=== PATIENT | male | born 1950 | race Caucasian/White ===

== ENCOUNTER 2018-01-13 07:55 | Inpatient (IN) | payer OTHER ==
[~2018-01-13] VITALS: Ht 185.4 cm; Wt 87.0 kg
[~2018-01-13 07:55] MED LIST: ATEN-60 PO; IBUP800T24 PO; PREG75CA PO; RANI300C7 PO; TRIA75TA55 PO
[2018-01-13] MEDS ORDERED: VANCOMYCIN HCL 1000 MG VL ONE (10:27)
[2018-01-13] MEDS ORDERED: ceFAZolin 1GM 2 GM in D5W 5% 100 ML IV ONE (10:30)
[2018-01-13] MEDS ORDERED: CELECOXIB 100 MG CAP PO ONE (10:30)
[2018-01-13] MEDS ORDERED: PREGABALIN CAPSULE 75 MG CAP PO ONE (10:30)
[2018-01-13] MEDS ORDERED: ACETAMINOPHEN IV 1000 MG/100ML (10MG/ML) IV ONE (10:30)
[2018-01-13] MEDS ORDERED: TRANEXAMIC ACID 20 ML ONE (10:31)
[2018-01-13] MEDS ORDERED: BUPIVACAINE W/ EPINEPH 0.25% INJ 50ML MDV ONE (10:31)
[2018-01-13] MEDS ORDERED: KETOROLAC TROMETH 30 MG/ML 1ML VIAL ONE (10:33)
[2018-01-13] MEDS ORDERED: ceFAZolin 1GM/50ML 50 ML IV ONE (10:33)
[2018-01-13] MEDS ORDERED: MORPHINE SULF(PF) 0.5MG/ML 10ML VIAL ONE ×2 (10:33→10:51)
[2018-01-13] MEDS ORDERED: TETRACAINE 1% INJ 2 ML VIAL IJ ONE (10:48)
[2018-01-13] MEDS ORDERED: fentaNYL CITRATE 100 MCG/2 ML VL ONE (10:51)
[2018-01-13] MEDS ORDERED: MIDAZOLAM HCL 1MG/1ML-2 ML VIAL ONE ×2 (10:51→11:48)
[2018-01-13] MEDS ORDERED: PHENYLEPHRINE HCL 10 MG/ML VL IV ONE (11:06)
[2018-01-13] MEDS ORDERED: PROPOFOL 10 MG/ML 20 ML IV ONE (11:40)
[2018-01-13] MEDS ORDERED: ePHEDrine SULFATE 50 MG/ML AMP IV PRN (12:00)
[2018-01-13] MEDS ORDERED: KETOROLAC TROMETH 30 MG/ML 1ML VIAL IV PRN ×2 (12:00→14:15)
[2018-01-13] MEDS ORDERED: DEXAMETHASONE SOD PHOS 10MG/1ML VIAL INJ IV PRN (12:00)
[2018-01-13] MEDS ORDERED: diphenhdrAMINE HCL 50 MG/1 ML VL IV PRN (12:00)
[2018-01-13] MEDS ORDERED: NALBUPHINE HCL 10 MG/1ml INJECTION SUBCUT ONE (12:00)
[2018-01-13] MEDS ORDERED: LABETALOL HCL 5 MG/ML 4ML SYRINGE IV PRN (12:00)
[2018-01-13] MEDS ORDERED: HYDROmorphone HCL 2 MG/ML VL IV PRN ×2 (12:00)
[2018-01-13] MEDS ORDERED: MORPHINE SULF INJ 2 MG/ML SYRINGE 1ML IV ONE (12:00)
[2018-01-13] MEDS ORDERED: ONDANSETRON HCL 4 MG/2 ML VIAL IV PRN (12:00)
[2018-01-13] MEDS ORDERED: MIDAZOLAM HCL 1MG/1ML-2 ML VIAL IV PRN (12:00)
[2018-01-13] MEDS ORDERED: NALOXONE HCL 0.4 MG/ML VIAL IV PRN (12:00)
[2018-01-13] MEDS ORDERED: MORPHINE SULF(PF) 0.5MG/ML 10ML VIAL IV PRN (14:15)
[2018-01-13] MEDS ORDERED: NITROGLYCERIN 0.4 MG SL TAB SL PRN (14:15)
[2018-01-13] MEDS ORDERED: MORPHINE SULFATE 4 MG/ML SYR/VIAL IV PRN (14:15)
[2018-01-13] MEDS ORDERED: BISACODYL 5 MG EC TAB PO PRN (14:15)
[2018-01-13] MEDS ORDERED: ACETAMINOPHEN 325 MG TAB PO PRN (14:15)
[2018-01-13] MEDS ORDERED: traMADol HCL 50 MG TAB PO PRN (14:15)
[2018-01-13 18:00] VITALS: BP 124/98
[2018-01-13] MEDS: ONDANSETRON HCL 4 MG/2 ML VIAL IV PRN (18:34)
[2018-01-13] MEDS: ceFAZolin 1GM/50ML 50 ML IV SCH ×2 (18:34→22:05)
[2018-01-13] MEDS: LACTATED RINGER'S 1,000 ML IV SCH (18:35)
[2018-01-13] MEDS: DOCUSATE SOD 100 MG CAP PO SCH (22:05)
[2018-01-13] MEDS: PREGABALIN 25 MG CAP PO SCH (22:05)
[2018-01-13 22:55] VITALS: BP 119/94
[2018-01-14] MEDS: ceFAZolin 1GM/50ML 50 ML IV SCH (04:09)
[2018-01-14 05:25] VITALS: BP 128/81
[2018-01-14] MEDS: oxyCODONE ER 10 MG TAB PO SCH ×3 (06:00→23:31)
[2018-01-14] MEDS: LACTATED RINGER'S 1,000 ML IV SCH ×3 (07:00→10:00)
[2018-01-14 07:17] LABS: BUN/Creatinine Ratio 12.6; Bilirubin, Total 0.9 mg/dL (0.2-1.0); Calcium 7.8 mg/dL (8.5-10.1); Potassium 3.3 mmol/L (3.5-5.1); Total Protein 6.1 g/dL (6.4-8.2)
[2018-01-14 08:00] VITALS: BP 101/70
[2018-01-14] MEDS: Ensure Enlive Strawberry 8oz Bottle PO SCH ×3 (08:00→17:49)
[2018-01-14 08:22] LABS: Hematocrit 39.5 % (41.0-53.0); Hemoglobin 13.1 g/dL (13.5-17.5)
[2018-01-14] MEDS ORDERED: MORPHINE SULFATE 4 MG/ML SYR/VIAL IV PRN (09:30)
[2018-01-14] MEDS: POTASSIUM CHL 20 Meq TABLET PO SCH (10:00)
[2018-01-14] MEDS: DOCUSATE SOD 100 MG CAP PO SCH ×2 (10:00→23:28)
[2018-01-14] MEDS ORDERED: PATIENTS OWN MEDICATION (Ranitidine Hcl 1 CAP) PO SCH (10:00)
[2018-01-14] MEDS: TRIAMTERENE/HCTZ 75/50MG TABLET PO SCH (10:00)
[2018-01-14] MEDS: ENOXAPARIN SOD 40 MG/0.4 ML SYRINGE SC SCH (10:00)
[2018-01-14] MEDS ORDERED: ATENOLOL PO SCH (10:00)
[2018-01-14] MEDS: ATENOLOL 25 MG TAB PO SCH (10:00)
[2018-01-14] MEDS: FAMOTIDINE 20 MG TAB PO SCH (10:43)
[2018-01-14 12:13] VITALS: BP 90/65
[2018-01-14 17:00] VITALS: BP 111/71
[2018-01-14 22:00] VITALS: BP 95/67
[2018-01-14] MEDS: PREGABALIN 25 MG CAP PO SCH (23:29)
[2018-01-15 05:23] VITALS: BP 113/72
[2018-01-15] MEDS: LACTATED RINGER'S 1,000 ML IV SCH ×2 (07:00→16:10)
[2018-01-15] MEDS: Ensure Enlive Strawberry 8oz Bottle PO SCH ×3 (07:37→17:50)
[2018-01-15 08:44] LABS: Hematocrit 33.8 % (41.0-53.0); Hemoglobin 11.7 g/dL (13.5-17.5)
[2018-01-15 09:00] VITALS: BP 110/70
[2018-01-15] MEDS: FAMOTIDINE 20 MG TAB PO SCH (09:40)
[2018-01-15] MEDS: POTASSIUM CHL 20 Meq TABLET PO SCH (09:41)
[2018-01-15] MEDS: oxyCODONE ER 10 MG TAB PO SCH ×2 (09:43→10:00)
[2018-01-15] MEDS: ATENOLOL 25 MG TAB PO SCH (09:44)
[2018-01-15] MEDS: ENOXAPARIN SOD 40 MG/0.4 ML SYRINGE SC SCH (09:44)
[2018-01-15] MEDS: DOCUSATE SOD 100 MG CAP PO SCH (10:00)
[2018-01-15] MEDS: TRIAMTERENE/HCTZ 75/50MG TABLET PO SCH (10:00)
[2018-01-15] MEDS: ONDANSETRON HCL 4 MG/2 ML VIAL IV PRN (11:08)
[2018-01-15 13:00] VITALS: BP 114/72
[2018-01-15 17:00] VITALS: BP 114/80
== END 2018-01-15 19:00 | DRG 470 ==
LOC: SUR 07:55 → CENTRAL 07:56
PROVIDERS: ADMIT Orthopaedic Surgery Adult Reconstructive Orthopaedic Surgery; ATTEND Orthopaedic Surgery Adult Reconstructive Orthopaedic Surgery
PROC: 0SRD0J9 Replacement of Left Knee Joint with Synthetic Substitute, Cemented, Open Approach (ICD-10-PCS; principal; 2018-01-13 11:06)
DX: M17.12 Unilateral primary osteoarthritis, left knee (principal); M21.262 Flexion deformity, left knee; M21.00 Valgus deformity, not elsewhere classified, unspecified site; Z82.49 Family history of ischemic heart disease and other diseases of the circulatory system; S83.005A Unspecified dislocation of left patella, initial encounter; X58.XXXA Exposure to other specified factors, initial encounter; Y93.89 Activity, other specified; Y92.89 Other specified places as the place of occurrence of the external cause; E87.6 Hypokalemia; Z98.49 Cataract extraction status, unspecified eye; Z85.47 Personal history of malignant neoplasm of testis; I13.10 Hypertensive heart and chronic kidney disease without heart failure, with stage 1 through stage 4 chronic kidney disease, or unspecified chronic kidney disease; N18.2 Chronic kidney disease, stage 2 (mild); G89.29 Other chronic pain; F17.200 Nicotine dependence, unspecified, uncomplicated
CPT/HCPCS: 36415; 73562; 80053; 85014; 85018; 97116; 97163; C1713; J0131; J0690; J1885; J2250; J2405; J2704; J7060

== ENCOUNTER 2025-03-30 17:11 | Inpatient (IN) | payer OTHER ==
[~2025-03-30] VITALS: Ht 175.3 cm; Wt 68.2 kg
[~2025-03-30 17:11] MED LIST changes: +CYCL-839 PO; +DOCU-265 PO; +ENO40SY SC; +IBUP-1456 PO; -IBUP800T24 PO; -TRIA75TA55 PO
[2025-03-30] MEDS ORDERED: AMIODARONE 360mg/200mL PREMIX 200 ML IV SCH (18:18)
[2025-03-30 18:29] VITALS: PULSE 137; RESP 20; O2SAT 95
--- NOTE | 2025-03-30 18:34 | ED.PDOC ---
History of Present Illness HPI Comments Kartik Melchor is a 75-year-old male, with past medical history of HTN, suprapubic catheter. The patient came to the ED brought by EMS team. The patient reports he was at physical therapy early today, when he started feeling dyspneic and with generalized weakness. His heart rate was found to be elevated and he was sent to [facility] urgent care, where his EKG showed SVT with a heart rate of >143bpm. He was started on adenosine 6mg, then adenosine 12mg with improvement on heart rate and conversion to sinus rhythm. Upon arrival to the ED, his BP was 121/78 HR: 143bpm with EKG showing sinus tachycardia. The patient denies lightheadedness, chest pain, palpitation, abdominal pain, fever, chills or other symptoms. The patient will be admitted for rate control and further assessment. Chief Complaint: General Weakness Time Seen by MD: 18:03 Reviewed Notes: Nurses Notes, Marble Machine Tender Notes, Medications, Allergies (Narcotics) Allergies: Coded Allergies: Hydrocodone (Verified Allergy, Unknown, 07/31/18) Propoxyphene (Verified Allergy, Unknown, 07/31/18) Home Meds Active Scripts Enoxaparin Sodium (Lovenox) 40 Mg/0.4 Ml Ij, 40 MG SC DAILY for 11 Days Prov:SHIV BOWERS MD 08/06/18 Docusate Sodium (Docusate Sodium) 100 Mg Cap, 100 MG PO Q12HR for 30 Days, CAP Prov:SHIV BOWERS MD 08/06/18 Cyclobenzaprine Hcl (Cyclobenzaprine Hcl) 10 Mg Tab, 5 MG PO TID for 14 Days, #21 TAB Prov:SHIV BOWERS MD 08/06/18 Reported Medications Ibuprofen (Ibuprofen) 800 Mg Tab, 800 MG PO TIDPRN PRN for MODERATE PAIN, MG 07/31/18 Pregabalin (Lyrica) 75 Mg Cap, 1 CAP PO HS, #60 CAP 1 Refill 01/10/18 Ranitidine Hcl (Ranitidine Hcl) 300 Mg Cap, 1 CAP PO DAILY, #30 CAP 3 Refills 01/10/18 Atenolol (Atenolol) 25 Mg Tab, 1 TAB PO DAILY, #30 TAB 5 Refills 01/10/18 Information Source: Patient Mode of Arrival: EMS Severity: Moderate Timing: Hours Duration: Since onset Prehospital treatment: 12 Lead EKG, Other (Adenosine 6mg and 12mg ) Past Medical History PAST MEDICAL HISTORY: HTN Surgical History (Other): Suprapubic catheter. Bilateral knee replacement. Family History Family History: Reviewed,noncontributory to illness Social History Smoker: Non-Smoker Alcohol: Denies ETOH Use Drugs: Denies Drug Use Lives In: Home Constitutional: reports: weakness (Generalized weakness); denies: chills, diaphoresis, fatigue, fever, malaise, sweats, others EENTM: denies: blurred vision, double vision, ear bleeding, ear discharge, ear drainage, ear pain, ear ringing, eye pain, eye redness, hearing loss, mouth pain, mouth swelling, nasal discharge, nose bleeding, nose congestion, nose pain, photophobia, tearing, throat pain, throat swelling, voice changes, others Respiratory: denies: cough, hemoptysis, orthopnea, SOB at rest, shortness of breath, SOB with excertion, stridor, wheezing, others Cardiovascular: denies: chest pain, dizzy spells, diaphoresis, Dyspnea on exertion, edema, irregular heart beat, left arm pain, lightheadedness, palpitations, PND, syncope, others Gastrointestinal: denies: abdomen distended, abdominal pain, blood streaked bowels, constipated, diarrhea, dysphagia, difficulty swallowing, hematemesis, melena, nausea, poor appetite, poor fluid intake, rectal bleeding, rectal pain, vomiting, others Genitourinary: denies: burning, dysuria, flank pain, frequency, hematuria, incontinence, penile discharge, penile sore, pain, testicle pain, testicle swelling, urgency, others Neurological: denies: dizziness, fainting, headache, left sided numbness, left sided weakness, numbness, paresthesia, pre-existing deficit, right sided numbness, right sided weakness, seizure, speech problems, tingling, tremors, weakness, others Musculoskeletal: denies: back pain, gout, joint pain, joint swelling, muscle pain, muscle stiffness, neck pain, others Integumetry: denies: bruises, change in color, change in hair/nails, dryness, laceration, lesions, lumps, rash, wounds, others Allergic/Immunocompromised: denies: Difficulty Healing, Frequent Infections, Hives, Itching, others Hematologic/Lymphatic: denies: anemia, blood clots, easy bleeding, easy bruising, swollen glands, others Endocrine: denies: excessive hunger, excessive sweating, excessive thirst, excessive urination, flushing, intolerance to cold, intolerance to heat, unexplained weight gain, unexplained weight loss, others Psychiatric: denies: anxiety, bipolar disorder, depression, hopeless, panic disorder, schizophrenia, sleepless, suicidal, others Physical Exam Exam Comments Alert, oriented x3. General Appearance: Mild Distress HEENT: Normal ENT Inspection, Pharynx Normal, TMs Normal Neck: Full Range of Motion, Non-Tender, Normal, Normal Inspection Respiratory: Chest Non-Tender, Lungs Clear, No Accessory Muscle Use, No Respiratory Distress, Normal Breath Sounds Cardiovascular: No JVD, No Murmur, No Gallop, Normal Peripheral Pulses (143bpm), Tachycardia Breast Exam: Deferred Gastrointestinal: No Organomegaly, Non Tender, No Pulsatile Mass, Normal Bowel Sounds, Soft Genitalia: Deferred Pelvic: Deferred Rectal: Deferred Extremities: No pedal edema, Other (The patient has a left orthopedic boot. unable to explore gait at this time. ) Musculoskeletal : Apperance: Normal Neurologic: Alert, roofer vinyl coating II-XII nml as Tested, No Motor Deficits, Normal Affect, Normal Mood, No Sensory Deficits Cerebellar Function: Normal Reflexes: Normal Skin: Dry, Normal Color, Warm Lymphatic: No Adenopathy Was a procedure done? Was a procedure done?: No EKG EKG : Pulse Rate (adult): 140 [place]: Normal Cardiac Rhythm: NSR Block: RBBB Hypertrophy: None ST: New, Infarct Differential Dx Considerations may include: #SVT #Tachycardia. X-Ray, Labs, Meds, VS Vital Signs Date Time Temp Pulse Resp B/P (MAP) Pulse Ox O2 Delivery O2 Flow Rate FiO2 03/30/25 18:29 137 20 95 Room Air* 0 21 03/30/25 18:07 134 03/30/25 17:39 98.4 139 20 101/72 (82) 98.4 03/30/25 17:36 140 03/30/25 17:20 98.3 150 16 121/78 97 98.3 Lab Test 03/30/25 18:20 03/30/25 18:18 Range/Units Urine Color Yellow Yellow Urine Clarity Turbid H Clear Urine pH 7.5 5.0-9.0 Urine Specific Simpson 1.023 1.001-1.035 Urine Protein Trace H Negative Urine Ketones Trace Negative Urine Blood Negative Negative /uL Urine Nitrite Negative Negative Urine Bilirubin Negative Negative Urine Urobilinogen Normal Negative mg/dL Urine Leukocyte Esterase 3+ Negative /uL Urine RBC <1 0 - 3 /hpf Urine WBC Clumps Present None Seen /hpf Urine Microscopic WBC 55 H 0-3 /HPF Urine Squamous Epithelial Cells Few <5 /hpf Urine Triple Phosphate Crystals Mod None Seen /hpf Urine Amorphous Crystals Few None Seen /hpf Urine Bacteria Few H None Seen /hpf Urine Hyaline Casts Few 0 - 2 /lpf Urine Mucus Few None Seen Urine Glucose Normal Normal mg/dL Urine Opiates Screen Pending Urine Fentanyl Screen Pending Urine Barbiturates Screen Pending Urine Phencyclidine Screen Pending Urine Amphetamines Screen Pending Urine Benzodiazepines Screen Pending Urine Cocaine Screen Pending Urine Cannabinoids Screen Pending White Blood Count 9.6 4.4-10.8 10^3/uL Red Blood Count 4.90 4.5-5.90 10^6/uL Hemoglobin 15.0 13.5-17.5 g/dL Hematocrit 43.3 41.0-53.0 % Mean Corpuscular Volume 88.5 80.0-100.0 fL Mean Corpuscular Hemoglobin 30.6 28.0-32.0 pg Mean Corpuscular Hemoglobin Concent 34.6 32.0-36.0 g/dL Red Cell Distribution Width 13.6 11.8-14.3 % Platelet Count 246 140-450 10^3/uL Mean Platelet Volume 7.7 6.9-10.8 fL Neutrophils (%) (Auto) 79.8 37.0-80.0 % Lymphocytes (%) (Auto) 11.4 10.0-50.0 % Monocytes (%) (Auto) 6.7 0.0-12.0 % Eosinophils (%) (Auto) 1.5 0.0-7.0 % Basophils (%) (Auto) 0.6 0.0-2.0 % Neutrophils # (Auto) 7.6 1.6-8.6 10 ^3/uL Lymphocytes # (Auto) 1.1 0.4-5.4 10 ^3/uL Monocytes # (Auto) 0.6 0-1.3 10 ^3/uL Eosinophils # (Auto) 0.1 0-0.8 10 ^3/uL Basophils # (Auto) 0.1 0-0.2 10 ^3/uL Nucleated Red Blood Cells 0.1 % D-Dimer, Quantitative 1.12 H 0.0-0.49 mg/L FEU Sodium Level Pending Potassium Level Pending Chloride Level Pending Carbon Dioxide Level Pending Anion Gap Pending Blood Urea Nitrogen Pending Creatinine Pending Glomerular Filtration Rate Calc Pending BUN/Creatinine Ratio Pending Serum Glucose Pending Calcium Level Pending Magnesium Level Pending Total Bilirubin Pending Aspartate Amino Transferase (AST) Pending Alanine Aminotransferase (ALT) Pending Alkaline Phosphatase Pending Troponin I High Sensitivity Pending B-Type Natriuretic Peptide Pending Total Protein Pending Albumin Pending X-Ray, Labs, Meds, VS Comment 18:45 The patient was re-evaluated HR: 133bpm 92/75mmHg CBC: WBC: 9.6x10e3/uL Hb: 15.0mg/dl CMP pending at this time. The patient will be admitted for further assessment and management. Time of 1ST Reevaluation: 18:44 Reevaluation 1ST: Improved Patient Education/Counseling: Diagnosis, Treatment, Prognosis, Need For Follow Up Family Education/Counseling: No Family Present SEPSIS Sepsis Screen Date sepsis recognized/suspect: Mar 30, 2025 Time Sepsis recognized/suspect: 1713 Recent Procedure: No On Antibiotic Therapy: No Respiratory Rate >20: No Heart Rate >90: Yes Temp<36 C (96.8 F) or >38.3 C: No SBP <90 or MAP <65 mmHG: No New Acute Mental Status Change: No Is the patient on CPAP, BIPAP,: No Physician Orders Troponin-I Hs (03/30/25 18:03) Comprehensive Metabolic Panel (03/30/25 18:03) B-Type Natriuretic Peptide (03/30/25 18:03) Chest Portable (03/30/25 18:03) Magnesium (03/30/25 18:03) Troponin-I Hs (03/30/25 19:03) Troponin-I Hs (03/30/25 21:03) Electrocardigram (03/30/25 18:03) Electrocardigram (03/30/25 19:03) Amiodarone 360mg/200ml Premix (Nexterone (03/30/25 18:45) Urinalysis (03/30/25 18:37) Drug Screen (03/30/25 18:46) Bilat Lower Dvt (03/30/25 18:53) Vital Signs Date Time Temp Pulse Resp B/P (MAP) Pulse Ox O2 Delivery O2 Flow Rate FiO2 03/30/25 18:29 137 20 95 Room Air* 0 21 03/30/25 18:07 134 03/30/25 17:39 98.4 139 20 101/72 (82) 98.4 03/30/25 17:36 140 03/30/25 17:20 98.3 150 16 121/78 97 98.3 Laboratory Tests Test 03/30/25 18:18 White Blood Count 9.6 10^3/uL (4.4-10.8) Departure 1 Departure Time of Disposition: 18:56 Impression: Primary Impression: SVT (supraventricular tachycardia) Additional Impression: HTN (hypertension) Disposition: ADMITTED INPATIENT Admit to: Tele Condition: Fair Comments Goals of care discussed with the patient > 35 min. Discussed plan of care with Dr. Torres Code status: Full code PCP: Regi/ TOMMIE Baez Plan discussed with: Patient, the patient agrees with the admission plan. Critical Care Note Critical Care Time?: Yes (35 min-critical care time only) Stability Stability form required: No Heart Score Heart Score: Heart Score Response (Comments) Value History Moderate Suspicious 1 EKG Normal 0 Age >65 2 Risk Factors 1 or 2 risk factors 1 Troponin Normal limit 0 Total 4 MURALI MILLER RESIDENT Mar 30, 2025 18:34
[2025-03-30 18:36] LABS: Hematocrit 43.3 % (41.0-53.0); Hemoglobin 15.0 g/dL (13.5-17.5); Mean Corpuscular Hemoglobin 30.6 pg (28.0-32.0); Mean Corpuscular Volume 88.5 fL (80.0-100.0); Nucleated Red Blood Cells % 0.1 %
--- NOTE | 2025-03-30 18:42 | DVH ---
CHEST RADIOGRAPH Indication: Tachycardia Technique: Single frontal view of the chest was obtained Comparison: None FINDINGS: Lines and Tubes: None Lungs: No focal consolidation. Hyperinflation of the lungs with mild interstitial prominence. 0.8 cm nodule within the right mid to lower lung zone. Pleura: No effusion. No pneumothorax. Cardiomediastinal contours: Unremarkable Bones: No acute osseous abnormality. IMPRESSION: Hyperinflation of the lungs are Mild interstitial prominence which may be from Emphysematous changes. 8 mm nodular density of the right mid to lower lung zone. CT should be considered for further evaluat ion.
[2025-03-30 18:46] LABS: Urine Amorphous Crystal FEW /hpf (None Seen); Urine Protein, UAD TRACE (Negative); Urine WBC Clumps PRESENT /hpf (None Seen)
[2025-03-30 18:53] LABS: Alanine Aminotransferase 13 U/L (7-40); Albumin 4.4 g/dL (3.2-4.8); Alkaline Phosphatase 73 U/L (46-116); Anion Gap 14 (5-15); BUN/Creatinine Ratio 15.7 (10.0-20.0); Bilirubin, Total 0.9 mg/dL (0.2-1.0); Blood Urea Nitrogen 14 mg/dL (9-23); Calcium 9.4 mg/dL (8.7-10.4); Carbon Dioxide 21 mmol/L (20-31); Chloride 102 mmol/L (98-107); Magnesium 1.8 mg/dL (1.6-2.6); Potassium 3.8 mmol/L (3.5-5.1); Sodium 137 mmol/L (136-145); Total Protein 7.1 g/dL (5.7-8.2)
[2025-03-30 18:55] LABS: Glucose 118 mg/dL (74-106)
[2025-03-30] MEDS: AMIODARONE BOLUS KIT 100 ML IV ONE (18:55)
--- NOTE | 2025-03-30 19:05 | ECG ---
[facility] Test Date: 2025-03-30 Test Time: 18:07:54 Pat Name: DEANNA HALL Department: [facility] ED Room: [address] [place] [address] Gender: M Communications Project Lead: ben : 1950 Requested By: MURALI MILLER Order Number: [id number] Reading MD: Yuniel Adams Measurements Intervals [place] Rate: 134 P: 0 [place]: 84 QRS: 75 QRSD: 137 T: 31 QT: 353 QTc: 527 Interpretive Statements Sinus tachycardia Right bundle branch block Electronically Signed On 03-31-2025 9:06:18 PDT by Yuniel Adams Please click the below link to view image of tracing.
[2025-03-30] MEDS: AMIODARONE 360mg/200mL PREMIX 200 ML IV ONE (19:25)
[2025-03-30 19:30] LABS: Benzodiazephine Screen, Urine Neg (NEGATIVE)
[2025-03-30 19:33] LABS: Amphetamine Screen, Urine Neg (NEGATIVE); Barbiturate Scree,Urine Neg (NEGATIVE); Cannabinoid Screen, Urine Pos (NEGATIVE); Cocaine Screen, Urine Neg (NEGATIVE); Opiate Scree,Urine Neg (NEGATIVE); Phencyclidine Screen, Urine Neg (NEGATIVE)
[2025-03-30] MEDS ORDERED: NITROGLYCERIN 0.4 MG SL TAB SL PRN (20:00)
[2025-03-30] MEDS ORDERED: ONDANSETRON HCL 4 MG/2 ML VIAL IV PRN (20:00)
[2025-03-30] MEDS ORDERED: MORPHINE SULFATE 4 MG/ML SYR/VIAL IV PRN (20:15)
--- NOTE | 2025-03-30 20:20 | DVH ---
Procedure: US BiLat Lower DVT Study Date and Requested Time: 03/30/2025 07:47 PM History: R/O DVT Comparison: None Technique: Multiple high resolution crenshaw-scale images with and without compression obtained of the bi lateral lower extremity veins, including the common femoral vein, deep femoral vein, proximal mid and distal superficial femoral vein, and popliteal vein. Additional limited images of the greater saphen ous vein also obtained. Augmentation performed as indicated. Color and spectral doppler flow images o btained as indicated. Findings: Incompressibility of bilateral common femoral veins. Otherwise, no deep vein thrombosis of the remain rasheed of the bilateral lower extremity veins. Impression: There appears to be bilateral common femoral vein deep vein thrombosis. Learning And Development Officer documented notification of resident [place] at 8:10 p.m. On 03/30/2025
[2025-03-30] MEDS: IOHEXOL 350 MG/ML 100ML IJ ONE (21:00)
[2025-03-30] MEDS: FAMOTIDINE 20 MG TAB PO SCH (22:00)
--- NOTE | 2025-03-30 22:25 | DVH ---
CTA Chest with intravenous contrast INDICATION: r/o pe , sob, elevated d dimer COMPARISON: None TECHNIQUE: Multidetector spiral CTA of the chest was performed of the chest with intravenous contrast . PULMONARY ANGIOGRAPHY PROTOCOL was utilized using a bolus-tracking technique centered on the main p ulmonary artery. Axial, coronal and sagittal multiplanar and MIP reformats were performed. Radiation Dose : 1. Chest: CTDI volume is 20.72 mGy. Dose-length product is 715.35 mGy*cm Contrast: 100 cc Omnipaque 350. The dose indicators for CT are the volume Computed Tomography (CT) Dose Index (CTDIvol) and the Dose Length Product (DLP), and are measured in units of mGy and mGy-cm, respectively. These indicators are not patient dose, but values generated from the CT scanner acquisition factors. The report includes radiation exposure data for exposures received during this examination. Findings: Pulmonary artery: No pulmonary embolism Lower neck: Normal thyroid. Lungs: Linear bands of scarring at both lung apices. No dense focal airspace disease. Heart/Vascular Structures: Normal heart size. No pericardial effusion. Coronary calcifications. Ascen ding thoracic aorta is borderline dilated measuring 4.1 cm. Lymph Nodes: No adenopathy Pleura: No pleural effusion or significant pneumothorax. Musculoskeletal: No acute osseous abnormality. Soft tissues: Normal. Upper abdomen: Limited portions of the upper abdomen are unremarkable. IMPRESSION: No pulmonary embolism or other acute abnormality.
[2025-03-30] MEDS: ENOXAPARIN SOD 100 MG/1 ML SYRINGE SC SCH (23:12)
[2025-03-31] VITALS (7 sets, daily range): BP systolic 99–131; BP diastolic 71–98; PULSE 60–73; RESP 18–20; TEMP 97.8–97.9; O2SAT 90–98
--- NOTE | 2025-03-31 02:39 | DVHHP2 ---
Admitting Diagnosis: SVT, UTI History of Present Illness History Source: Patient Exam Limitations: No limitations HPI Kartik Melchor is a 75-year-old male, with a past medical history of HTN, suprapubic catheter, testicular cancer, who presents with a chief complaint of Palpitations. The patient reports he was at physical therapy yesterday, when he started feeling dyspneic and with generalized weakness. His heart rate was found to be elevated and he was sent to [facility] urgent care, where his EKG showed SVT with a heart rate of >143bpm. He was started on adenosine 6mg, then adenosine 12mg with improvement on heart rate and conversion to sinus rhythm. Patient denies lightheadedness, chest pain, palpitation, dyspnea, headaches, nausea, vomiting, abdominal pain, fever, chills, or other symptoms. Patient was started on Amiodarone drip in the ED. Patient admitted for further evaluation and treatment. Home Meds Active Scripts Enoxaparin Sodium (Lovenox) 40 Mg/0.4 Ml Ij, 40 MG SC DAILY for 11 Days Prov:SHIV BOWERS MD 08/06/18 Docusate Sodium (Docusate Sodium) 100 Mg Cap, 100 MG PO Q12HR for 30 Days, CAP Prov:SHIV BOWERS MD 08/06/18 Cyclobenzaprine Hcl (Cyclobenzaprine Hcl) 10 Mg Tab, 5 MG PO TID for 14 Days, #21 TAB Prov:SHIV BOWERS MD 08/06/18 Reported Medications Ibuprofen (Ibuprofen) 800 Mg Tab, 800 MG PO TIDPRN PRN for MODERATE PAIN, MG 07/31/18 Pregabalin (Lyrica) 75 Mg Cap, 1 CAP PO HS, #60 CAP 1 Refill 01/10/18 Ranitidine Hcl (Ranitidine Hcl) 300 Mg Cap, 1 CAP PO DAILY, #30 CAP 3 Refills 01/10/18 Atenolol (Atenolol) 25 Mg Tab, 1 TAB PO DAILY, #30 TAB 5 Refills 01/10/18 Past Medical History Cardiac: HTN Pulmonary: No pertinent Hx Central Nervous System: No pertinent Hx GI: No pertinent Hx Hemotology/Oncology: No pertinent Hx Hepatobiliary: No pertinent Hx Psychiatric: No pertinent Hx Musculoskeletal: No pertinent Hx Rheumotologic: No pertinent Hx Infectious Disease: No peritnent Hx ENT: No pertinent Hx Renal/: Other (Testicular cancer, supra pubic catheter) Endocrine: No pertinent Hx Dermatology: No pertinent Hx Past Surgical History: Total knee replacement (bilateral ) Patient Family History: Alcoholism FH: pancreatic cancer G8 MOTHER Hypertension G8 BROTHER Smoker: No Hx (Negative) Alocohol: None Drugs: None Lives with: With family Domestic Violence: Neg Review of Systems Constitutional: Weakness Ears, Nose, & Throat: No symptom reported Eyes: No symptom reported Pulmonary/Respiratory: No symptom reported Cardiovascular: Palpitations Gastrointestinal: No symptom reported Genitourinary: No symptom reported Musculoskeletal: No symptom reported Skin: No symptom reported Psychiatric: No symptom reported Endocrine: No symptom reported Hemotologic/Lymphatic: No symptom reported H&P Exam Vital Signs Vital Signs Date Time Temp Pulse Resp B/P (MAP) Pulse Ox O2 Delivery O2 Flow Rate FiO2 03/31/25 00:52 73 103/72 (82) 95 03/30/25 22:55 18 03/30/25 18:29 Room Air* 0 21 03/30/25 17:39 98.4 98.4 General Appeara: Well developed, Well nourished, Normal Appearance Head Exam: Normal inspection Neck Exam: Normal inspection, Non-tender, Normal alignment Eye Exam: bilateral eye Normal inspection, bilateral eye PERRL, bilateral eye EOMI Ear Exam: bilateral ear Auricle normal Nasal Exam: Normal inspection Mouth: Normal Inspection Pulmonary/Respiratory: Normal inspection, Normal breath sounds, Chest non- tender, Lungs clear Cardiovascular/Chest: Normal inspection, Regular rate, Normal Rhythm Peripheral Pulses: 2+ dorsalis pedis (R), 2+ dorsalis pedis (L), 2+ Radial (R), 2+ Radial (L) Abdominal Exam: Normal bowel sounds, Soft Male Genital Exam: Other (supra pubic catheter) 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 hearing, Normal speech, PERRL Neuro/Mental St: Alert, Oriented Appearance: Appropriate appearance, Appropriate insight Eye contact/ Speech: Cooperative, Good eye contact, Normal speech Thoughts/Psych: Normal thought pattern Skin Exam: Normal inspection, Normal color, Warm/dry SEPSIS Sepsis Screen Date sepsis recognized/suspect: Mar 30, 2025 Time Sepsis recognized/suspect: 2147 Recent Procedure: No On Antibiotic Therapy: Yes Respiratory Rate >20: No Heart Rate >90: Yes Temp<36 C (96.8 F) or >38.3 C: No SBP <90 or MAP <65 mmHG: No New Acute Mental Status Change: No Is the patient on CPAP, BIPAP,: No Physician Orders Urinalysis (03/30/25 18:37) Bilat Lower Dvt (03/30/25 18:53) Admit (03/30/25 19:55) * Cardiology Consult (03/30/25 19:55) Echo 2d Mode Cardiac Dop (03/30/25 19:55) Basic Metabolic Panel (03/31/25 05:00) Basic Metabolic Panel (04/01/25 05:00) Pt Request For Service (03/30/25 19:55) Nitroglycerin Sublingual (Ntrostat Subli (03/30/25 20:00) Stat Ekg For Chest Pain (03/30/25 19:55) Notify Md Of Changes From Base (03/30/25 19:55) Lieutenant Firefighter For 24 Hours (03/30/25 19:55) Emergency Dysrhythmia Protocol (03/30/25 19:55) Rhythm Strips Once Every Shift (03/30/25 19:55) Oxygen By Nasal Cannula (03/30/25 19:55) Ondansetron Hcl (Zofran) (03/30/25 20:00) Acetaminophen Tablet (Tylenol Tablet) (03/30/25 20:00) Famotidine Tablet (Pepcid Tablet) (03/30/25 22:00) Ceftriaxone 1gm/50ml (Rocephin) (03/31/25 10:00) Ct Angio Chest Contrast (03/30/25 20:11) Cardiac Diet-2gna,Lofat,Lochol (03/31/25 Breakfast) Full Code (03/30/25 20:12) Morphine Sulfate Injection (03/30/25 20:15) Enoxaparin Sodium (Lovenox) (03/30/25 22:45) Vital Signs Date Time Temp Pulse Resp B/P (MAP) Pulse Ox O2 Delivery O2 Flow Rate FiO2 03/31/25 00:52 73 103/72 (82) 95 03/30/25 22:55 86 18 98/73 (81) 95 03/30/25 20:46 117 16 104/64 (77) 96 03/30/25 19:01 140 03/30/25 18:29 137 20 95 Room Air* 0 21 Laboratory Tests Test 03/30/25 18:18 White Blood Count 9.6 10^3/uL (4.4-10.8) Medications Medications Dose Ordered Sig/[place] Route Start Time Stop Time Status Last Admin Dose Admin Amiodarone HCl 100 ml @ 600 mls/hr ONCE ONCE IV 03/30/25 18:30 03/30/25 18:39 DC 03/30/25 18:55 600 MLS/HR Amiodarone HCL/ Dextrose 200 ml @ 33.33 mls/ hr ONCE ONCE IV 03/30/25 18:45 03/31/25 00:45 DC 03/30/25 19:25 33.33 MLS/HR Ceftriaxone Sodium 50 ml @ 100 mls/hr ONCE ONCE IV 03/30/25 20:00 03/30/25 20:29 DC 03/30/25 21:42 100 MLS/HR Enoxaparin Sodium 70 mg Q12HR SC 03/30/25 22:45 03/30/25 23:12 70 MG Famotidine 20 mg BID PO 03/30/25 22:00 03/30/25 22:00 20 MG Labs/Xrays Labs Test 03/30/25 21:23 03/30/25 19:28 03/30/25 18:20 03/30/25 18:18 Range/Units Troponin I High Sensitivity 17 </=54 ng/L Magnesium Level 1.8 1.6-2.6 mg/dL Urine Color Yellow Yellow Urine Clarity Turbid H Clear Urine pH 7.5 5.0-9.0 Urine Specific [place] 1.023 1.001-1.035 Urine Protein Trace H Negative Urine Ketones Trace Negative Urine Blood Negative Negative /uL Urine Nitrite Negative Negative Urine Bilirubin Negative Negative Urine Urobilinogen Normal Negative mg/dL Urine Leukocyte Esterase 3+ Negative /uL Urine RBC <1 0 - 3 /hpf Urine WBC Clumps Present None Seen /hpf Urine Microscopic WBC 55 H 0-3 /HPF Urine Squamous Epithelial Cells Few <5 /hpf Urine Triple Phosphate Crystals Mod None Seen /hpf Urine Amorphous Crystals Few None Seen /hpf Urine Bacteria Few H None Seen /hpf Urine Hyaline Casts Few 0 - 2 /lpf Urine Mucus Few None Seen Urine Glucose Normal Normal mg/dL Urine Opiates Screen Neg NEGATIVE Urine Fentanyl Screen Neg NEGATIVE Urine Barbiturates Screen Neg NEGATIVE Urine Phencyclidine Screen Neg NEGATIVE Urine Amphetamines Screen Neg NEGATIVE Urine Benzodiazepines Screen Neg NEGATIVE Urine Cocaine Screen Neg NEGATIVE Urine Cannabinoids Screen Pos NEGATIVE White Blood Count 9.6 4.4-10.8 10^3/uL Red Blood Count 4.90 4.5-5.90 10^6/uL Hemoglobin 15.0 13.5-17.5 g/dL Hematocrit 43.3 41.0-53.0 % Mean Corpuscular Volume 88.5 80.0-100.0 fL Mean Corpuscular Hemoglobin 30.6 28.0-32.0 pg Mean Corpuscular Hemoglobin Concent 34.6 32.0-36.0 g/dL Red Cell Distribution Width 13.6 11.8-14.3 % Platelet Count 246 140-450 10^3/uL Mean Platelet Volume 7.7 6.9-10.8 fL Neutrophils (%) (Auto) 79.8 37.0-80.0 % Lymphocytes (%) (Auto) 11.4 10.0-50.0 % Monocytes (%) (Auto) 6.7 0.0-12.0 % Eosinophils (%) (Auto) 1.5 0.0-7.0 % Basophils (%) (Auto) 0.6 0.0-2.0 % Neutrophils # (Auto) 7.6 1.6-8.6 10 ^3/uL Lymphocytes # (Auto) 1.1 0.4-5.4 10 ^3/uL Monocytes # (Auto) 0.6 0-1.3 10 ^3/uL Eosinophils # (Auto) 0.1 0-0.8 10 ^3/uL Basophils # (Auto) 0.1 0-0.2 10 ^3/uL Nucleated Red Blood Cells 0.1 % D-Dimer, Quantitative 1.12 H 0.0-0.49 mg/L FEU Sodium Level 137 136-145 mmol/L Potassium Level 3.8 3.5-5.1 mmol/L Chloride Level 102 98-107 mmol/L Carbon Dioxide Level 21 20-31 mmol/L Anion Gap 14 5-15 Blood Urea Nitrogen 14 9-23 mg/dL Creatinine 0.89 0.700-1.30 mg/dL Glomerular Filtration Rate Calc 90 >90 mL/min BUN/Creatinine Ratio 15.7 10.0-20.0 Serum Glucose 118 H 74-106 mg/dL Calcium Level 9.4 8.7-10.4 mg/dL Total Bilirubin 0.9 0.2-1.0 mg/dL Aspartate Amino Transferase (AST) 20 13-40 U/L Alanine Aminotransferase (ALT) 13 7-40 U/L Alkaline Phosphatase 73 46-116 U/L B-Type Natriuretic Peptide 49.65 0-100 pg/mL Total Protein 7.1 5.7-8.2 g/dL Albumin 4.4 3.2-4.8 g/dL Assessment/Plan Problem List: (1) SVT (supraventricular tachycardia) (2) HTN (hypertension) Plan This is a 75-year-old male, with a past medical history of HTN, suprapubic catheter, testicular cancer, who presents with a chief complaint of P alpitations and generalized weakness. Patient was found to have 1. Supra Ventricular Tachycardia 2. Urinary Tract Infection 3. Hypertension 4. Bilateral lower extremity DVT's 5. Supra pubic catheter 6. Hx of Testicular Cancer Plan Admit Telemetry Cardiology consultation, 2D echocardiogram, Amiodarone drip per protocol Lovenox 1mg/kg SC q 12 hours IV antibiotic Urine culture Discussed all above with patient who verbalizes agreement and understanding of care plan. All questions were answered. Discussed with supervising MD. Plan discussed with: Patient, Other Code Visit Code Visit Total Time (mins): 45 Additional Comments Additional Comments Additional Comments Patient has shortness reviewed and evaluated. Patient is seen and evaluated admitted by nurse practice sleeve fixer. I agree with her evaluation, documentation, assessment and care plan as outlined. MADDIE LOPEZ Mar 31, 2025 02:39 PHAN NUNO MD Mar 31, 2025 14:34
[2025-03-31 06:18] LABS: Chloride 102 mmol/L (98-107); Potassium 3.5 mmol/L (3.5-5.1); Sodium 139 mmol/L (136-145)
[2025-03-31 06:19] LABS: Anion Gap 14 (5-15); Calcium 9.2 mg/dL (8.7-10.4); Carbon Dioxide 23 mmol/L (20-31)
[2025-03-31 06:24] LABS: BUN/Creatinine Ratio 10.5 (10.0-20.0)
[2025-03-31 06:30] LABS: Blood Urea Nitrogen 8 mg/dL (9-23); Glucose 107 mg/dL (74-106)
--- NOTE | 2025-03-31 08:58 | ECG ---
[facility] Test Date: 2025-03-30 Test Time: 17:34:50 Pat Name: DEANNA HALL Department: [facility] ED Room: [address] [place] [address] Gender: M Certified Social Workers In Health Care: KARIE : 1950 Requested By: MURALI MILLER Order Number: [id number] Reading MD: Yuniel Adams Measurements Intervals [place] Rate: 140 P: 99 SD: 86 QRS: 81 QRSD: 124 T: 39 QT: 325 QTc: 496 Interpretive Statements Sinus tachycardia Right bundle branch block Probable posterior infarct, acute Electronically Signed On 03-31-2025 9:06:05 PDT by Yuniel Adams Please click the below link to view image of tracing.
[2025-03-31] MEDS ORDERED: ENOXAPARIN SOD 40 MG/0.4 ML SYRINGE SC SCH (10:00)
--- NOTE | 2025-03-31 11:33 | DVHINCON2 ---
Date Seen: Mar 31, 2025 Referring Physician TOMMIE Daigle Reason for Consultation SVT History of Present Illness This is a 75-year-old male patient who presents to emergency room with chief complaint of shortness of breath and elevated heart rate. The patient reports he was at his physical therapy appointment, when a nurse went to take his vital signs and noticed that his heart rate was in the 170s. He was instructed to go to the nearest emergency room. The patient reports that there was an urgent Care close by so he decided to go to the urgent care. While at the urgent care, a twelve lead electrocardiogram was done. Twelve lead electrocardiogram brought [facility] and reveals sinus tachycardia with right bundle branch block, PVCs, and artifact (this is a poor quality EKG)---EKG reviewed with . The patient was diagnosed with SVT by urgent care and the patient was provided with adenosine 6 mg followed by adenosine 12 mg for which the patient converted to a normal sinus rhythm. EMS was called and the patient was brought to the emergency room for further evaluation. A twelve lead electrocardiogram done in the emergency room reveals sinus tachycardia with underlying right bundle branch block. At the time of assessment, the patient is in a normal sinus rhythm with right bundle branch block and frequent PVCs. The patient denies any cardiac symptoms such as chest pain, palpitations, shortness of breath, or dizziness at time of assessment. Initial troponin level of 15ng/L with flat trend thereafter. Significant past medical history includes hypertension, dyslipidemia, COPD, testicular cancer status post chemotherapy and right orchiectomy, and suprapubic catheter. Past Medical History Past medical history reviewed. No other significant than mentioned above. Past Surgical History Right orchiectomy in 1990 Bilateral knee replacements Family History: Alcoholism FH: pancreatic cancer G8 MOTHER Hypertension G8 BROTHER Family History Family history reviewed. Social History Patient has a 20 pack-year history, quit smoking approximately 40 years ago Denies any alcohol use Denies any drug use Allergies: Coded Allergies: Hydrocodone (Verified Allergy, Unknown, 07/31/18) Propoxyphene (Verified Allergy, Unknown, 07/31/18) Home Meds Active Scripts Apixaban Base (ELIQUIS) 5 Mg Tab, 5 MG PO BID, #120 TAB 1 Refill Take two tablets (10 mg) twice a day for next six days then take one tablet (5 mg) twice a day for blood clots in legs. Prov:PHAN NUNO MD 04/01/25 Senna (Senokot Extra Strength) 17.2 Mg Tab, 17.2 MG PO QPM, #30 TAB Prov:PHAN NUNO MD 04/01/25 Atenolol (Atenolol) 25 Mg Tab, 1 TAB PO DAILY, #90 TAB 5 Refills Hold taking this medicine when your heart rate below 60. Prov:PHAN NUNO MD 04/01/25 Discontinued Reported Medications Ibuprofen (Ibuprofen) 800 Mg Tab, 800 MG PO TIDPRN PRN for MODERATE PAIN, MG 07/31/18 Pregabalin (Lyrica) 75 Mg Cap, 1 CAP PO HS, #60 CAP 1 Refill 01/10/18 Ranitidine Hcl (Ranitidine Hcl) 300 Mg Cap, 1 CAP PO DAILY, #30 CAP 3 Refills 01/10/18 Discontinued Scripts Enoxaparin Sodium (Lovenox) 40 Mg/0.4 Ml Ij, 40 MG SC DAILY for 11 Days Prov:SHIV BOWERS MD 08/06/18 Docusate Sodium (Docusate Sodium) 100 Mg Cap, 100 MG PO Q12HR for 30 Days, CAP Prov:SHIV BOWERS MD 08/06/18 Cyclobenzaprine Hcl (Cyclobenzaprine Hcl) 10 Mg Tab, 5 MG PO TID for 14 Days, #21 TAB Prov:SHIV BOWERS MD 08/06/18 Home Meds Home medications reviewed. Current Medications Current Medications Medications (Trade) Dose Ordered Sig/Maico Route PRN Reason Start Time Stop Time Status Last Admin Amiodarone HCL/ Dextrose 200 ml @ 16.66 mls/ hr Q12H IV 03/30/25 18:18 03/30/25 18:29 DC Nitroglycerin (Ntrostat Sublingual) 0.4 mg Q5MINP PRN SL FOR CHEST PAIN 03/30/25 20:00 Morphine Sulfate 2 mg Q30M PRN IV FOR CHEST PAIN 03/30/25 20:15 Ondansetron HCl (Zofran) 4 mg Q6HPRN PRN IV NAUSEA / VOMITING 03/30/25 20:00 Acetaminophen (Tylenol Tablet) 650 mg Q6HPRN PRN PO PAIN SCALE 1-3 OR TEMP>100.4 03/30/25 20:00 Famotidine (Pepcid Tablet) 20 mg BID PO 03/30/25 22:00 03/31/25 10:52 Enoxaparin Sodium (Lovenox) 40 mg DAILY SC 03/31/25 10:00 03/30/25 22:36 DC Ceftriaxone Sodium 50 ml @ 100 mls/hr DAILY IV 03/31/25 10:00 03/31/25 10:53 Enoxaparin Sodium (Lovenox) 70 mg Q12HR SC 03/30/25 22:45 03/31/25 10:52 Review of Systems Constitutional: No symptom reported Ears, Nose, & Throat: No symptom reported Eyes: No symptom reported Neurological: No symptoms reported Pulmonary/Respiratory: Shortness of breath Cardiovascular: No symptom reported Gastrointestinal: No symptom reported Genitourinary: No symptom reported Musculoskeletal: No symptom reported Skin: No symptom reported Psychiatric: No symptom reported Endocrine: No symptom reported Hematologic/Lymphatic: No symptom reported Vital Signs Vital Signs Date Time Temp Pulse Resp B/P (MAP) Pulse Ox O2 Delivery O2 Flow Rate FiO2 03/31/25 09:00 66 19 116/72 (87) 98 03/30/25 18:29 Room Air* 0 21 03/30/25 17:39 98.4 98.4 Physical Exam General Appearance: Cooperative. Well-developed. Well-nourished. No acute distress. Pulmonary/Respiratory: Clear, bilateral breaths sounds. Cardiovascular/Chest: Regular rate and rhythm. Peripheral Pulses: 2+ Radial (R). 2+ Radial (L). 2+ Pedal (R). 2+ Pedal (L) Abdominal Exam: Normal bowel sounds. Ankle Exam: Negative ankle edema Lower extremities: Negative lower extremity edema Neuro/Mental Status: A/OX4, coherent. Thoughts/Psych: Normal thought pattern. Appropriate mood and affect. Good judgment and insight. Appearance: No acute distress. Skin Exam: Normal inspection. Normal color. Warm and dry. Labs/Diagnostic Data Labs Test 03/31/25 04:28 03/30/25 21:23 03/30/25 19:28 03/30/25 18:20 Range/Units Sodium Level 139 136-145 mmol/L Potassium Level 3.5 3.5-5.1 mmol/L Chloride Level 102 98-107 mmol/L Carbon Dioxide Level 23 20-31 mmol/L Anion Gap 14 5-15 Blood Urea Nitrogen 8 L 9-23 mg/dL Creatinine 0.76 0.700-1.30 mg/dL Glomerular Filtration Rate Calc 94 >90 mL/min BUN/Creatinine Ratio 10.5 10.0-20.0 Serum Glucose 107 H 74-106 mg/dL Calcium Level 9.2 8.7-10.4 mg/dL Troponin I High Sensitivity 17 </=54 ng/L Magnesium Level 1.8 1.6-2.6 mg/dL Urine Color Yellow Yellow Urine Clarity Turbid H Clear Urine pH 7.5 5.0-9.0 Urine Specific [place] 1.023 1.001-1.035 Urine Protein Trace H Negative Urine Ketones Trace Negative Urine Blood Negative Negative /uL Urine Nitrite Negative Negative Urine Bilirubin Negative Negative Urine Urobilinogen Normal Negative mg/dL Urine Leukocyte Esterase 3+ Negative /uL Urine RBC <1 0 - 3 /hpf Urine WBC Clumps Present None Seen /hpf Urine Microscopic WBC 55 H 0-3 /HPF Urine Squamous Epithelial Cells Few <5 /hpf Urine Triple Phosphate Crystals Mod None Seen /hpf Urine Amorphous Crystals Few None Seen /hpf Urine Bacteria Few H None Seen /hpf Urine Hyaline Casts Few 0 - 2 /lpf Urine Mucus Few None Seen Urine Glucose Normal Normal mg/dL Urine Opiates Screen Neg NEGATIVE Urine Fentanyl Screen Neg NEGATIVE Urine Barbiturates Screen Neg NEGATIVE Urine Phencyclidine Screen Neg NEGATIVE Urine Amphetamines Screen Neg NEGATIVE Urine Benzodiazepines Screen Neg NEGATIVE Urine Cocaine Screen Neg NEGATIVE Urine Cannabinoids Screen Pos NEGATIVE Test 03/30/25 18:18 Range/Units White Blood Count 9.6 4.4-10.8 10^3/uL Red Blood Count 4.90 4.5-5.90 10^6/uL Hemoglobin 15.0 13.5-17.5 g/dL Hematocrit 43.3 41.0-53.0 % Mean Corpuscular Volume 88.5 80.0-100.0 fL Mean Corpuscular Hemoglobin 30.6 28.0-32.0 pg Mean Corpuscular Hemoglobin Concent 34.6 32.0-36.0 g/dL Red Cell Distribution Width 13.6 11.8-14.3 % Platelet Count 246 140-450 10^3/uL Mean Platelet Volume 7.7 6.9-10.8 fL Neutrophils (%) (Auto) 79.8 37.0-80.0 % Lymphocytes (%) (Auto) 11.4 10.0-50.0 % Monocytes (%) (Auto) 6.7 0.0-12.0 % Eosinophils (%) (Auto) 1.5 0.0-7.0 % Basophils (%) (Auto) 0.6 0.0-2.0 % Neutrophils # (Auto) 7.6 1.6-8.6 10 ^3/uL Lymphocytes # (Auto) 1.1 0.4-5.4 10 ^3/uL Monocytes # (Auto) 0.6 0-1.3 10 ^3/uL Eosinophils # (Auto) 0.1 0-0.8 10 ^3/uL Basophils # (Auto) 0.1 0-0.2 10 ^3/uL Nucleated Red Blood Cells 0.1 % D-Dimer, Quantitative 1.12 H 0.0-0.49 mg/L FEU Total Bilirubin 0.9 0.2-1.0 mg/dL Aspartate Amino Transferase (AST) 20 13-40 U/L Alanine Aminotransferase (ALT) 13 7-40 U/L Alkaline Phosphatase 73 46-116 U/L B-Type Natriuretic Peptide 49.65 0-100 pg/mL Total Protein 7.1 5.7-8.2 g/dL Albumin 4.4 3.2-4.8 g/dL Assessment Questionable supraventricular tachycardia Sinus tachycardia with PVCs Rule out structural heart disease Bilateral common femoral vein DVT's Hypertension Dyslipidemia COPD History of testicular cancer status post right orchiectomy History of tobacco use Plan/Recommendation We will continue with the following plan/recommendations (Dr. Adams): We will proceed with obtaining a transthoracic echocardiogram to evaluate cardiac function. The patient was diagnosed with SVT by urgent care team. Patient has not had any episodes of SVT at this facility after reviewing cardiac event monitor. We will recommend medical management with AV maggie blocking agents such as beta-blockers as this is a class I recommendation per guidelines. Continue with close telemetry monitoring and notify cardiology team immediately for any ECG changes. Long-term management for SVT includes: Watchful waiting, medication therapy, and catheter ablation if deemed necessary per ACC guidelines. Thank you for allowing us to care for this patient. Please call with any questions or concerns. Critical care time spent: 44 minutes This medical document was created using an electronic medical record system with voice recognition software and computerized dictation system. Although this document has been carefully reviewed, there might still be some phonetic and typographical errors. Occasional wrong-word or ``sound-alike substitutions may have occurred due to the inherent limitations of voice recognition software. These areas are purely typographical due to imperfections of the software programs and do not reflect any compromise in the patient's medical care. Please read the chart carefully and recognize, using context, where these subst itutions have occurred. Plan discussed with: Patient NYHA Physical activity limitations: NA Date of Service: Mar 31, 2025 Billing Provider: VINCENZO NARVAEZ Cardiology Common Codes: 55621-TALANYV INP/OBS CARE (High) Cardiology Consultation Codes: 63543-[id number] CONSULT <45MIN VINCENZO NARVAEZ Mar 31, 2025 11:33
--- NOTE | 2025-03-31 18:31 | DVH ---
CLINICAL HISTORY: dvt r/o malignancy TECHNIQUE: CT of the abdomen and pelvis was performed without intravenous contrast. This exam was per formed according to our departmental dose optimization program. Up-to-date CT equipment and radiation dose reduction techniques are utilized as appropriate. 7.75 CTDI: 7.75 DLP: 458.82 WID: COMPARISON: None FINDINGS: Lower Thorax: Linear bibasilar scarring or atelectasis. Tiny ground-glass nodules in the bilateral tommy ng bases. Normal-sized heart. At least mild aortic valve and coronary artery calcifications partially imaged. Liver and Biliary system: There is a well-defined low-density lesion in segment 6/7 of the liver whic h is not optimally evaluated without contrast though may reflect a cyst. There is intermediate densit y within the lumen of the gallbladder. Gallbladder is normal caliber. Normal-sized liver. There is no biliary ductal dilatation. Spleen: Unremarkable. Adrenal Glands and Kidneys: Normal adrenal glands. There is a hypodensity in the upper pole left kidn ey not optimally evaluated without contrast though may reflect a cyst. A smaller hypodensity in the u pper pole right kidney not optimally evaluated without contrast. Left lower pole renal scarring. Ther e is excreted contrast in the bilateral renal collecting systems. no hydronephrosis or nephrolithiasi s. Pancreas and Retroperitoneum: The pancreas is grossly unremarkable. No retroperitoneal lymphadenopath y. Aorta and Major Vessels: Moderate calcified plaque in the aortoiliac vessels. Normal caliber aortoili ac vessels. Bowel, Mesentery and Peritoneal space: Normal caliber small and large bowel. Mild distal colonic dive rticulosis. Moderate retained stool in the colon. Normal appendix. There is midline anterior abdomina l wall laxity and hernia containing multiple nonobstructed small bowel loops. No free air or fluid co llection. Pelvis: There is contrast in the urinary bladder. There is a suprapubic catheter decompressing the u rinary bladder. There is no pelvic lymphadenopathy. Prostate is normal size. Seminal vesicles are gr ossly unremarkable. Abdominal wall and Osseous Structures: Moderate right convexity scoliosis of the lower thoracic and u pper lumbar spine. Multilevel lower thoracic and lumbar spondylosis. Mild superior endplate compressi on fracture of L3 appearing chronic. There is bony demineralization. Tiny locules of glass in the ant erior abdominal wall likely injection sites. IMPRESSION: 1. No noncontrast evidence of mass or lymphadenopathy. 2. Midline abdominal wall laxity and hernia containing multiple nonobstructed small bowel loops. 3. Tiny ground-glass nodules in the bilateral lung bases which could reflect atypical infection. 4. At least mild aortic valve and coronary artery calcifications partially imaged. 5. Mild distal colonic diverticulosis. 6. Moderate retained stool in the colon. 7. Suprapubic catheter decompresses the urinary bladder.
[2025-03-31] MEDS: PREGABALIN CAPSULE 75 MG CAP PO SCH (22:00)
[2025-03-31] MEDS: DOCUSATE SOD 100 MG CAP PO SCH (22:12)
[2025-04-01] VITALS (7 sets, daily range): BP systolic 103–129; BP diastolic 54–90; PULSE 53–70; RESP 16–18; TEMP 97–98.2; O2SAT 95–98
[2025-04-01 06:24] LABS: Hematocrit 40.1 % (41.0-53.0); Hemoglobin 13.9 g/dL (13.5-17.5); Mean Corpuscular Hemoglobin 30.9 pg (28.0-32.0); Mean Corpuscular Volume 89.2 fL (80.0-100.0); Nucleated Red Blood Cells % 0.1 %
[2025-04-01 06:27] LABS: Chloride 102 mmol/L (98-107); Sodium 138 mmol/L (136-145)
[2025-04-01 06:28] LABS: Anion Gap 11 (5-15); Calcium 9.2 mg/dL (8.7-10.4); Carbon Dioxide 25 mmol/L (20-31)
[2025-04-01 06:33] LABS: BUN/Creatinine Ratio 15.1 (10.0-20.0); Blood Urea Nitrogen 11 mg/dL (9-23); Glucose 98 mg/dL (74-106)
[2025-04-01 06:35] LABS: Potassium 3.3 mmol/L (3.5-5.1)
[2025-04-01 06:36] LABS: INR 1.04 (0.9-1.15); Partial Thromboplastin Time 31.5 SEC (24.5-34.5); Prothrombin Time 11.0 sec (9.3-11.8)
[2025-04-01] MEDS: ACETAMINOPHEN 325 MG TAB PO PRN (08:32)
[2025-04-01] MEDS: ATENOLOL 25 MG TAB PO SCH (09:03)
--- NOTE | 2025-04-01 11:13 | DVHSR ---
APPROVED REPORT EXAM: LIMITED Two-dimensional and M-mode echocardiogram with Doppler and color Doppler. Blood Pressure: 99/71 mmHg INDICATION SVT RISK FACTORS Height: 5' 9", Weight: 149 DIMENSIONS LVDd4.6 (3.8-5.7cm)LA (2D) (1.9-4.0cm)Aortic Root4.3 (2.0-3.7cm) LVDs3.2 (2.5-4.0cm)LA (MM) (1.9-4.0cm)Aortic Cusp Exc1.5 (1.5-2.0cm) EF (%) 60.0 (55-70%)Rt. Atrium (1.9-4.0cm)Asc. Aorta cm IVSd0.9 (0.7-1.1cm)RV (D) (1.8-2.4cm) PWd0.8 (0.7-1.1cm) Mitral Valve MitralMitral Stenosis E/A ratio0.02D MVAcm2 Aortic Valve Aortic ValveAortic Stenosis V10.70m/[place] Mean GR.5mmHg V21.60m/[place] Peak GR.11mmHg LVOT Diameter2.1 (1.8-2.4cm)Doppler AVA1.51cm2 Other Information Quality : Technically LimitedRhythm : Technically limited study due to body habitus, patient is SOB. Conclusion Technically good study.. Mild aortic root enlargement. Valves are normal. EF of 60% with normal right ventricular function. Dopplers unremarkable. No pericardial effusion masses or vegetations.
[2025-04-01] MEDS ORDERED: SENN17.23 PO (12:26)
[2025-04-01] MEDS ORDERED: APIX5TAB PO (12:26)
[2025-04-01] MEDS ORDERED: ATEN-60 PO (12:26)
--- NOTE | 2025-04-01 12:33 | DVHDS2 ---
Discharge Summary Date of Admission Mar 30, 2025 at 19:55 Date of Discharge: Apr 01, 2025 Labs/Diagnostic Data: Laboratory Results Test 04/01/25 05:01 03/30/25 21:23 03/30/25 19:28 03/30/25 18:20 White Blood Count 5.8 10^3/uL (4.4-10.8) Red Blood Count 4.50 10^6/uL (4.5-5.90) Hemoglobin 13.9 g/dL (13.5-17.5) Hematocrit 40.1 % (41.0-53.0) Mean Corpuscular Volume 89.2 fL (80.0-100.0) Mean Corpuscular Hemoglobin 30.9 pg (28.0-32.0) Mean Corpuscular Hemoglobin Concent 34.6 g/dL (32.0-36.0) Red Cell Distribution Width 13.9 % (11.8-14.3) Platelet Count 213 10^3/uL (140-450) Mean Platelet Volume 8.2 fL (6.9-10.8) Neutrophils (%) (Auto) 59.6 % (37.0-80.0) Lymphocytes (%) (Auto) 24.1 % (10.0-50.0) Monocytes (%) (Auto) 9.7 % (0.0-12.0) Eosinophils (%) (Auto) 5.3 % (0.0-7.0) Basophils (%) (Auto) 1.3 % (0.0-2.0) Neutrophils # (Auto) 3.5 10 ^3/uL (1.6-8.6) Lymphocytes # (Auto) 1.4 10 ^3/uL (0.4-5.4) Monocytes # (Auto) 0.6 10 ^3/uL (0-1.3) Eosinophils # (Auto) 0.3 10 ^3/uL (0-0.8) Basophils # (Auto) 0.1 10 ^3/uL (0-0.2) Nucleated Red Blood Cells 0.1 % Prothrombin Time 11.0 sec (9.3-11.8) Prothrombin Time INR 1.04 (0.9-1.15) Activated Partial Thromboplast Time 31.5 SEC (24.5-34.5) Sodium Level 138 mmol/L (136-145) Potassium Level 3.3 mmol/L (3.5-5.1) Chloride Level 102 mmol/L (98-107) Carbon Dioxide Level 25 mmol/L (20-31) Anion Gap 11 (5-15) Blood Urea Nitrogen 11 mg/dL (9-23) Creatinine 0.73 mg/dL (0.700-1.30) Glomerular Filtration Rate Calc 95 mL/min (>90) BUN/Creatinine Ratio 15.1 (10.0-20.0) Serum Glucose 98 mg/dL (74-106) Calcium Level 9.2 mg/dL (8.7-10.4) Troponin I High Sensitivity 17 ng/L (</=54) Magnesium Level 1.8 mg/dL (1.6-2.6) Urine Color Yellow (Yellow) Urine Clarity Turbid (Clear) Urine pH 7.5 (5.0-9.0) Urine Specific [place] 1.023 (1.001-1.035) Urine Protein Trace (Negative) Urine Ketones Trace (Negative) Urine Blood Negative /uL (Negative) Urine Nitrite Negative (Negative) Urine Bilirubin Negative (Negative) Urine Urobilinogen Normal mg/dL (Negative) Urine Leukocyte Esterase 3+ /uL (Negative) Urine RBC <1 /hpf (0 - 3) Urine WBC Clumps Present /hpf (None Seen) Urine Microscopic WBC 55 /HPF (0-3) Urine Squamous Epithelial Cells Few /hpf (<5) Urine Triple Phosphate Crystals Mod /hpf (None Seen) Urine Amorphous Crystals Few /hpf (None Seen) Urine Bacteria Few /hpf (None Seen) Urine Hyaline Casts Few /lpf (0 - 2) Urine Mucus Few (None Seen) Urine Glucose Normal mg/dL (Normal) Urine Opiates Screen Neg (NEGATIVE) Urine Fentanyl Screen Neg (NEGATIVE) Urine Barbiturates Screen Neg (NEGATIVE) Urine Phencyclidine Screen Neg (NEGATIVE) Urine Amphetamines Screen Neg (NEGATIVE) Urine Benzodiazepines Screen Neg (NEGATIVE) Urine Cocaine Screen Neg (NEGATIVE) Urine Cannabinoids Screen Pos (NEGATIVE) Test 03/30/25 18:18 D-Dimer, Quantitative 1.12 mg/L FEU (0.0-0.49) Total Bilirubin 0.9 mg/dL (0.2-1.0) Aspartate Amino Transferase (AST) 20 U/L (13-40) Alanine Aminotransferase (ALT) 13 U/L (7-40) Alkaline Phosphatase 73 U/L (46-116) B-Type Natriuretic Peptide 49.65 pg/mL (0-100) Total Protein 7.1 g/dL (5.7-8.2) Albumin 4.4 g/dL (3.2-4.8) Other Laboratory Tests 04/01/25 05:01 Brief Hx & Hospital Course: Kartik Melchor is a 75-year-old male, with a past medical history of HTN, suprapubic catheter, testicular cancer, who presents with a chief complaint of Palpitations. The patient reports he was at physical therapy yesterday, when he started feeling dyspneic and with generalized weakness. His heart rate was found to be elevated and he was sent to [facility] urgent care, where his EKG showed SVT with a heart rate of >143bpm. He was started on adenosine 6mg, then adenosine 12mg with improvement on heart rate and conversion to sinus rhythm. Patient denies lightheadedness, chest pain, palpitation, dyspnea, headaches, nausea, vomiting, abdominal pain, fever, chills, or other symptoms. Patient was started on Amiodarone drip in the ED. Patient admitted for further evaluation and treatment. He is admitted and evaluated by Cardiology had a 2D echocardiogram. Showed a normal ejection fraction. Patient initially started on IV amiodarone drip however once rate is controlled this is discontinued. Patient had bilateral lower extremity ultrasound showed a DVT therefore he is started on anticoagulation. He is resumed on atenolol that he used to take at home for heart rate control. I have advised patient to continue Eliquis for blood clots and to have follow up with his primary care physician to further evaluate and manage. I have discussed with him the risks of bleeding with the Eliquis as well as the benefits of treating DVT, also risks of atenolol with the bradycardia. Also advised him to cut down the losartan hydrochlorothiazide to have a tablet and take it when his blood pressure is above 140/80. He has verbalized understanding of this and agreed to take the medications given benefits outweigh the risks. While in the hospital patient otherwise clinically remained stable. He is afebrile. His white blood cell count is normal. Not having any other issues. Back to baseline normal status. Given rest of his workup is unremarkable and feeling better it is felt he could be safely discharged home today. I have talked with the patient regarding his hospital diagnosis, ultrasound results, discharge medications including side effects, discharge instructions and follow-up plan of care. He has verbalized understanding of these and agree with the care plan as outlined. Operations or Procedures EXAM: LIMITED Two-dimensional and M-mode echocardiogram with Doppler and color Doppler. Blood Pressure: 99/71 mmHg INDICATION SVT RISK FACTORS Height: 5' 9", Weight: 149 DIMENSIONS LVDd 4.6 (3.8-5.7cm) LA (2D) (1.9-4.0cm) Aortic Root 4.3 (2.0- 3.7cm) LVDs 3.2 (2.5-4.0cm) LA (MM) (1.9-4.0cm) Aortic Cusp Exc 1.5 (1.5- 2.0cm) EF (%) 60.0 (55-70%) Rt. Atrium (1.9-4.0cm) Asc. Aorta cm IVSd 0.9 (0.7-1.1cm) RV (D) (1.8-2.4cm) PWd 0.8 (0.7-1.1cm) Mitral Valve Mitral Mitral Stenosis E/A ratio 0.0 2D MVA cm2 Aortic Valve Aortic Valve Aortic Stenosis V1 0.70m/s AO Mean GR. 5mmHg V2 1.60m/s AO Peak GR. 11mmHg LVOT Diameter 2.1 (1.8-2.4cm) Doppler [place] 1.51cm2 Other Information Quality : Technically Limited Rhythm : Technically limited study due to body habitus, patient is SOB. Conclusion Technically good study.. Mild aortic root enlargement. Valves are normal. EF of 60% with normal right ventricular function. Dopplers unremarkable. No pericardial effusion masses or vegetations. SIGNED BY: CLARKE THRASHER Sr., MD SIGNED DATE/TIME: 04/01/25 1113 Condition at Discharge: Stable Final Diagnosis/Problems List Sinus tachycardia with PVCs Bilateral common femoral vein DVT's (new) Hypertension Dyslipidemia COPD History of testicular cancer status post right orchiectomy History of tobacco use History of chronic suprapubic catheter Discharge Disposition: Home Discharge Instruct/Medications Diet: Consistent carbohydrate, Cardiac 2g Na,low cholest Activity: No Restrictions, As Tolerated Follow Up/Referral: Your primary care doctor next week to check your blood pressure and heart rate and further manage medications as well as further evaluation of blood clots in legs. Medications: Take medications as prescribed. Scheduled Apixaban Base (Eliquis), 5 MG PO BID Atenolol (Atenolol), 1 TAB PO DAILY Cyclobenzaprine Hcl (Cyclobenzaprine Hcl), 5 MG PO TID Docusate Sodium (Docusate Sodium), 100 MG PO Q12HR Enoxaparin Sodium (Lovenox), 40 MG SC DAILY Pregabalin (Lyrica), 1 CAP PO HS, (Reported) Ranitidine Hcl (Ranitidine Hcl), 1 CAP PO DAILY, (Reported) Senna (Senokot Extra Strength), 17.2 MG PO QPM Scheduled PRN Ibuprofen (Ibuprofen), 800 MG PO TIDPRN PRN for MODERATE PAIN, (Reported) Discharge Statement: "Patient was advised to return to the ER or call 911 if any headaches, dizziness, shortness of breath, chest pain, abdominal pain, bleeding, fevers, or worsening of medical condition. Patient was counseled about treatment plan, medications, possible side effects, patientverbalized understanding. All questions were answered to the best of my ability. This discharge took greater then 30 minutes in planning, reviewing documentation, counseling the patient, and discussing with other team members." ASSESSMENT ASSESSMENT Assessment Sinus tachycardia with PVCs Bilateral common femoral vein DVT's (new) Hypertension Dyslipidemia COPD History of testicular cancer status post right orchiectomy History of tobacco use History of chronic suprapubic catheter PHAN NUNO MD Apr 01, 2025 12:33
--- NOTE | 2025-04-01 14:39 | DVHPN2 ---
Consult Progress Note Subjective Other Systems: Patient remains in normal sinus rhythm with right bundle branch block and occasional PVCs Objective vital signs Vital Sign Date Time Temp Pulse Resp B/P (MAP) Pulse Ox O2 Delivery O2 Flow Rate FiO2 04/01/25 13:00 97.9 57 16 128/90 (103) 96 97.9 04/01/25 08:00 Room Air* 0 21 Total Intake and Output 03/31/25 03/31/25 04/01/25 15:00 23:00 07:00 Intake Total 400 ml 480 ml Output Total 350 ml Balance 400 ml 130 ml medications Current Medications Medications Dose Ordered Sig/Maico Route Start Time Stop Time Status Last Admin Dose Admin Nitroglycerin 0.4 mg Q5MINP PRN SL 03/30/25 20:00 Morphine Sulfate 2 mg Q30M PRN IV 03/30/25 20:15 Ondansetron HCl 4 mg Q6HPRN PRN IV 03/30/25 20:00 Acetaminophen 650 mg Q6HPRN PRN PO 03/30/25 20:00 04/01/25 08:32 650 MG Famotidine 20 mg BID PO 03/30/25 22:00 04/01/25 09:02 20 MG Ceftriaxone Sodium 50 ml @ 100 mls/hr DAILY IV 03/31/25 10:00 04/01/25 09:02 100 MLS/HR Atenolol 25 mg DAILY PO 04/01/25 10:00 04/01/25 09:03 25 MG Docusate Sodium 100 mg Q12HR PO 03/31/25 22:00 04/01/25 09:02 100 MG Examination: GENERAL:Normal, LUNGS:Normal, CVS:Normal, NEURO:Normal laboratory and microbiology Laboratory Tests 04/01/25 05:01 Test 04/01/25 05:01 Range/Units Serum Glucose 98 74-106 mg/dL Problem List/Assessment/Plan Problem List/Assessment/Plan Questionable supraventricular tachycardia Sinus tachycardia with PVCs Rule out structural heart disease Bilateral common femoral vein DVT's Hypertension Dyslipidemia COPD History of testicular cancer status post right orchiectomy History of tobacco use Plan/Recommendations (Dr. Adams): Transthoracic echocardiogram reveals an EF of 60%. The patient was diagnosed with SVT by urgent care team. Patient has not had any episodes of SVT at this facility after reviewing cardiac event monitor. We will recommend medical management with AV maggie blocking agents such as beta-blockers as this is a class I recommendation per guidelines. Continue with close telemetry monitoring and notify cardiology team immediately for any ECG changes. Long-term management for SVT includes: Watchful waiting, medication therapy, and catheter ablation if deemed necessary per ACC guidelines. Thank you for allowing us to care for this patient. Please call with any questions or concerns. This medical document was created using an electronic medical record system with voice recognition software and computerized dictation system. Although this document has been carefully reviewed, there might still be some phonetic and typographical errors. Occasional wrong-word or ``sound-alike substitutions may have occurred due to the inherent limitations of voice recognition software. These areas are purely typographical due to imperfections of the software programs and do not reflect any compromise in the patient's medical care. Please read the chart carefully and recognize, using context, where these substitutions have occurred. Plan discussed with: Patient Date of Service: Apr 01, 2025 Billing Provider: VINCENZO NARVAEZ Common Visit Codes: [id number] INP/OBS CARE(HIGH) VINCENZO NARVAEZ Apr 01, 2025 14:39
== END 2025-04-01 17:00 | disposition home health service (06) | DRG 300 ==
LOC: ER 17:11 → EDBD 17:11 → OVERFLOW 19:55 → TELE-WESTW 03-31 13:39
PROVIDERS: ADMIT Nurse Practitioner Family; ATTEND Nurse Practitioner Family
DX: I82.413 Acute embolism and thrombosis of femoral vein, bilateral (principal); I47.10 Supraventricular tachycardia, unspecified; N39.0 Urinary tract infection, site not specified; I10 Essential (primary) hypertension; E78.5 Hyperlipidemia, unspecified; J44.9 Chronic obstructive pulmonary disease, unspecified; Z88.6 Allergy status to analgesic agent; Z88.5 Allergy status to narcotic agent; Z87.891 Personal history of nicotine dependence; Z80.0 Family history of malignant neoplasm of digestive organs; Z82.49 Family history of ischemic heart disease and other diseases of the circulatory system; Z81.1 Family history of alcohol abuse and dependence; Z85.47 Personal history of malignant neoplasm of testis; Z90.79 Acquired absence of other genital organ(s); Z79.01 Long term (current) use of anticoagulants; Z93.59 Other cystostomy status; Z92.21 Personal history of antineoplastic chemotherapy
CPT/HCPCS: 36415; 71045; 71275; 74176; 80048; 80053; 80307; 81001; 83735; 83880; 84484; 85025; 85379; 85610; 85730; 93005; 93306; 93970; 96365; 96372; 97110; 97116; 97163; 97530; 99291; G0378